=== PATIENT | female | born 1930 | race Caucasian/White ===

== ENCOUNTER 2018-12-09 07:10 | Day surgery (SDC) | payer OTHER ==
--- NOTE | 2018-12-05 15:25 | RAD REPORT ---
EXAM DESCRIPTION: RAD - Chest Pa And Lat (2 Views) - 12/05/2018 3:14 pm CLINICAL HISTORY: Preop chest, pending right breast surgery, hypertension, pacemaker, heart disease COMPARISON: None. TECHNIQUE: PA and lateral views of the chest were obtained. FINDINGS: The lungs are normal volume. No comparison imaging is available. Prominent interstitial ma rkings noted in each base. No history indicates any active respiratory symptoms. No failure or volume overload. 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 Heart size is normal and central vasculature is within normal limits. No pleural effusion or pneu mothorax seen. No acute bony finding noted. No aortic abnormality. IMPRESSION: Interstitial thickening is present in each medial lung base without peripheral mass or c onsolidation. No comparison is available and no history indicates active respiratory symptoms. 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
[2018-12-05 16:31] LABS: Absolute Lymphocytes (CBC) 0.8 K/uL (0.7-4.9); Absolute Monocytes 0.7 K/uL (0.1-1.3); Absolute Neutrophil 3.4 K/uL (1.8-8.0); Basophils % 0.4 % (0-1.3); Eosinophils % 1.9 % (0-4.4); Hematocrit 42.3 % (36.0-45.0); Lymphocytes % 15.9 % (15.3-44.8); MPV 8.9 fL (7.6-11.3); Monocytes % 13.4 % (3.3-12.3); RBC Red Blood Cell Count 4.55 M/uL (3.86-4.86)
--- NOTE | 2018-12-05 17:06 | EKG ---
Test Date: 2018-12-05 Test Time: 15:02:06 Application Technical Designer: ANNETTE MEASUREMENT RESULTS: Intervals: Rate: 70 PA: QRSD: 96 QT: 416 QTc: 449 [place]: P: PA: QRS: -61 T: -70 INTERPRETIVE STATEMENTS: Rhythm consistent with VVI pacing Abnormal ECG No previous ECG available for comparison Electronically Signed On 12-05-18 17:05:41 CDT by Jc Hinojosa
[2018-12-05 17:22] LABS: Potassium 2.7 mmol/L (3.5-5.1)
--- OUTSIDE RECORDS SUMMARY | 2018-12-09 07:23 | XMS REPORT ---
:1930 [facility] [address] [place] [address] Care Team Providers Name Role Phone EUGENIO AGUAYO Primary Care Provider Unavailable EUGENIO AGUAYO Unavailable Unavailable Problems This patient has no known problems. Allergies, Adverse Reactions, Alerts This patient has no known allergies or adverse reactions. Medications This patient has no known medications. Results Test Description Test Time Test Comments Text Results Atomic Results Result Comments Thyroid Stimulating Hormone (TSH) 2017-02-16 23:19:00 Test Item Value Reference Range Comments TSH (test code=TSH) 2.76 mIU/mL 0.270-4.200 D-Dimer, [id number] 22:57:00 Test Item Value Reference Range Comments D-Dimer, Quant (test code=DDQNT) 962 ng/mL 0-500 Comprehensive Metabolic [id number] 22:25:00 Test Item Value Reference Range Comments Sodium (test code=NA) 140 mmol/L 135-145 Potassium (test code=K) 4.1 mmol/L 3.5-5.1 Chloride (test code=CL) 104 mmol/L 98-105 Carbon Dioxide (test 26 mmol/L 22-29 code=CO2) Glucose (test code=GLU) 107 mg/dL 70-115 Blood Urea Nitrogen 21 mg/dL 8-23 (test code=BUN) Creatinine (test 0.9 mg/dL 0.5-0.9 code=CREAT) Calcium (test code=CA) 9.5 mg/dL 8.3-10.5 Prot Total (test 7.0 g/dL 6.4-8.3 code=TP) Albumin (test code=ALB) 4.4 g/dL 3.5-5.2 A/G Ratio (test 1.7 Ratio code=AGRATIO) Globulin (test 2.6 2.9-3.1 code=GLOB) Bili Total (test 0.4 mg/dL 0.1-0.9 code=TBIL) Alk Phos (test 54 U/L 35-104 code=APHOS) AST (test code=AST) 22 U/L 1-32 ALT (test code=ALT) 18 U/L 1-33 BUN/Creatinine Ratio 23.3 (test code=BCRATIO) Anion Gap (test 10 mmol/L 7-16 code=AGAP) Estimated GFR (test >60 mL/min/1.73m2 eGFR (estimated Glomerular code=GFR) Filtration Rate) is an estimated value,calculated from the patient's serum creatinine using the MDRD equation.It is NOT the patient's actual GFR. The eGFR provides a more clinicallyuseful measure of kidney disease than serum creatinine alone.This calculation takes sex and race into account, if the informationis provided. If the race is not provided, and the patient isAfrican-Lao, multiply by 1.212. If sex is not provided, and thepatient is female, multiply by 0.742. Results for patients <18 years ofage have not been validated by the MDRD study and should be interpretedwith caution.eGFR Result Interpretation:eGFR > or=60 is in the Normal RangeeGFR < 60 may mean kidney diseaseeGFR < 15 may mean kidney failureRanges recommended by the National Kidney Foundation,http://nkdep.nih .gov CBC with [id number] 21:25:00 Test Item Value Reference Range Comments WBC (test code=WBC) 5.7 K/cumm 4.4-10.5 RBC (test code=RBC) 4.12 M/cumm 3.75-5.20 Hemoglobin (test code=HGB) 13.3 gm/dL 12.2-14.8 Hematocrit (test code=HCT) 41.0 % 36.5-44.4 MCV (test code=MCV) 99.6 fL 80-100 MCH (test code=MCH) 32.3 pg 27.0-32.5 MCHC (test code=MCHC) 32.4 g/dL 32.0-37.5 RDW (test code=RDW) 13.0 % 11.5-14.5 Platelet Count (test code=PLTCT) 198 K/cumm 140-440 MPV (test code=MPV) 9.0 fL Diff Method (test code=DIFFM) Auto Neutrophil (test code=NEUT) 75.2 % 36-70 Lymphocyte (test code=LYMPH) 14.2 % 12-44 Monocyte (test code=MONO) 8.6 % 0-11 Eosinophil (test code=EOS) 1.6 % 0-7 Basophil (test code=BASO) 0.5 % 0-2 Neutro Abs (test code=ANEUT) 4.3 K/cumm 1.6-7.4 Lymph Abs (test code=ALYMPH) 0.8 K/cumm 0.5-4.6 [place] Abs (test code=AMONO) 0.5 K/cumm 0.0-1.2 Eos Abs (test code=AEOS) 0.09 K/cumm 0.00-0.74 Baso Abs (test code=ABASO) 0.0 K/cumm 0.00-0.21
[2018-12-09] MEDS ORDERED: CEFAZOLIN/SWI 1gm 1 GM/10 ML SYR ONE (07:45)
[2018-12-09] MEDS ORDERED: Ringers Lactate 1,000 ML IV ONE (07:45)
[2018-12-09] MEDS ORDERED: POTASSIUM CL SA 10 MEQ TAB PO ONE (08:30)
[2018-12-09] MEDS ORDERED: KCL 20 MEQ/100 mL IVPB 20 MEQ/100 ML BAG IV ONE ×2 (08:45→10:30)
--- NOTE | 2018-12-09 09:16 | RAD REPORT ---
EXAM DESCRIPTION: NM - Lymphoscintigraphy - 12/09/2018 9:09 am CLINICAL HISTORY: Breast cancer COMPARISON: None. TECHNIQUE: For periareolar injections of the right breast performed using 0.1 millicuries technetium 99 M sulfur colloid. Single image shows the 4 injections. No other areas of activity seen. Injection time was 0842 hours. IMPRESSION: Lymphoscintigraphy procedure as detailed.
[2018-12-09] MEDS ORDERED: LIDOCAINE 2% INJ, MPF 2 ML 1 ML ONE (09:53)
--- NOTE | 2018-12-09 10:10 | RAD REPORT ---
EXAM DESCRIPTION: US - Brst,Preop NL Wire Init w/Guid - 12/09/2018 9:45 am CLINICAL HISTORY: Right breast mass pending lumpectomy COMPARISON: Prior mammogram and ultrasound studies TECHNIQUE: Patient presented for ultrasound-guided needle localization of a previously biopsied smal l mass 12 o'clock right breast. Consent was obtained as part of the surgical consent. The procedure w as discussed with the patient prior to initiating the procedure. Preliminary imaging again identified a small suspicious hypoechoic mass 12 o'clock right breast 5 mm in size. Upper right breast was prepped and draped in the usual sterile fashion. From a medial approa ch, skin and deeper tissues were anesthetized with 1% lidocaine. Under direct sonographic visualizati on a 5 centimeter [place] [facility] lock needle was advanced. Tip was placed at the medial margin of the ma ss. Hookwire was set. Final imaging showed the needle tip at the superior margin of the mass. No hematoma or other complication encountered. Patient tolerated procedure well was transferred back to the surgical holding area for pending lumpectomy.
[2018-12-09] MEDS ORDERED: BUPIVACAINE 0.5% PF 10 ML VIAL ONE (10:14)
[2018-12-09] MEDS ORDERED: PROPOFOL 200 MG/20 ML VIAL IV ONE (10:35)
[2018-12-09] MEDS ORDERED: LIDOCAINE 1% MPF 2 ML AMPULE ONE (10:36)
[2018-12-09] MEDS ORDERED: FENTANYL CITR 100 MCG/2 ML ONE (10:36)
[2018-12-09] MEDS ORDERED: ROCURONIUM 50 MG/5 ML VIAL IV ONE (10:44)
[2018-12-09] MEDS ORDERED: METHYLENE BLUE 0.5% 10 ML AMP ONE (11:17)
[2018-12-09] MEDS ORDERED: ONDANSETRON 4 MG/2 ML VIAL ONE (12:39)
[2018-12-09] MEDS: MEPERIDINE HCL 50 MG/ML AMP ONE ×4 (12:51→13:06)
[2018-12-09] MEDS: HYDROMORPHONE HCL 1 MG/ML INJ ONE ×2 (13:15→13:20)
[2018-12-09] MEDS ORDERED: TRAMADOL 37.5mg/APAP 325mg PER TAB ONE (14:33)
--- NOTE | 2018-12-09 23:45 | OP ---
Date of Procedure: 12/09/2018 Surgeon: Nghia Alejo MD Freelance Displayer: KEVIN Ohara. Preoperative Diagnosis: Right breast cancer. Postoperative Diagnosis: Right breast cancer. Procedure: Needle localization, right breast lumpectomy, and sentinel node biopsy. Estimated Blood Loss: Minimal. Specimens: [place] node which was negative. Right breast lumpectomy margins were free. Findings: As above. Anesthesia: General. Complications: None. Disposition: The patient tolerated the procedure in stable condition, was taken to Recovery in good general condition. Procedure In Detail: The patient was brought to the OR and placed in supine position. General anest hesia was begun. The patient was prepped and draped in the usual sterile fashion. The patient was p repped and draped after the patient was injected with methylene blue, and breast was massaged and the n the counter was used to loosely the right axilla. There was not a clear count to identi fy the sentinel node. A 3 cm incision was made in the traditional place in the right axilla and deep to the subcutaneous tissue. Blue node was not identified. Therefore, just a few nodes that were pa lpated were sampled and sent to Pathology, which revealed no evidence of metastatic disease. Subsequ ently, this wound was irrigated, bleeding controlled with cautery. A 3-0 chromic was used to reappro ximate the subcutaneous tissue and close the skin. A lumpectomy was performed in the standard [facility] n with ellipse of skin approximately 8 x 3 cm around the insertion of the needle and then a core of t issue around the tip of the needle excised and sent to Pathology, margins were negative. Wound irrig ated. Bleeding controlled with cautery. A 3-0 chromic was used to reapproximate subcutaneous tissue and close the skin. Sterile dressing was applied. The patient was awakened and taken to Recovery i n good general condition. Discharge Note: The patient will go to Day Surgery and home when stable. Disposition: Home. Condition: Stable. Discharge Instructions: Resume home medications and diet. Activity as tolerated. No heavy lifting. Keep dressing clean and dry. Sponge bathe only. Ultracet 1 tablet p.o. q.4 h. p.r.n. pain, Keflex 500 mg p.o. q.6 h. Follow up in my office in 1 week. /MODL Voice ID: [id number] Report ID: [id number]
== END 2018-12-09 15:14 | disposition home or self-care (01) ==
LOC: OR 07:10
PROVIDERS: ATTEND Surgery
PROC: 07B50ZX Excision of Right Axillary Lymphatic, Open Approach, Diagnostic (ICD-10-PCS; 2018-12-09)
PROC: 0HBT0ZZ Excision of Right Breast, Open Approach (ICD-10-PCS; principal; 2018-12-09 10:00)
DX: C50.911 Malignant neoplasm of unspecified site of right female breast (principal); Z17.0 Estrogen receptor positive status [ER+]; I10 Essential (primary) hypertension; Z95.0 Presence of cardiac pacemaker
CPT/HCPCS: 93005; 85025; 80048 ×2; 36415 ×2; 84132; 88307; 88333; 71046; 19285; 78195; 19301; 38525; 38900; J2704; J3010; J2175; J2001; J1170; J3490; J0690; J2405; A9541